=== PATIENT | female | born 1980 | race Caucasian/White ===

== ENCOUNTER 2022-07-15 08:40 | Emergency (ER) | payer OTHER, SELFPAY ==
[2022-07-15 08:56] VITALS: PULSE 102; RESP 16; TEMP 37.2; O2SAT 96; BMI 33.7
[2022-07-15 09:09] VITALS: BP 130/84; PULSE 84; RESP 16; O2SAT 96
--- NOTE | 2022-07-15 09:09 | XR_ITS ---
The [address] [address] Patient Name: KYA DE SANTIAGO MRN: [id number] date: 1980 Sex: F Assigned Patient Location: ED.MAIN Current Patient Location: ER Accession/Order Number: [id number] Exam Date: 07/15/2022 09:50 Report Date: 07/15/2022 10:09 At the request of: ANATOLIY MINAYA Procedure: XR acute abdomen series EXAMINATION: XR acute abdomen series 07/15/2022 7:08 AM PDT HISTORY: abd pain 3 weeks COMPARISONS: None. FINDINGS: Chest findings: Lines/tubes/other: None. Heart and mediastinum: The heart and the mediastinum are within normal limits for technique. Bones: No acute osseous abnormality. Lungs: The lungs are clear. There is no evidence of pneumonia or pulmonary edema. Pleura: There is no significant pleural effusion or pneumothorax. Other: None. Abdominal findings: Nonobstructive bowel gas pattern. No pneumoperitoneum, pneumatosis, or portal venous gas. No abnormal soft tissue calcifications. Stool burden is average. IMPRESSION: No acute abnormality in the chest or abdomen. Electronically authenticated by: VENKAT HOLCOMB Date: 07/15/2022 10:09
--- NOTE | 2022-07-15 09:14 | ED.GENADUL1 ---
HPI - General Adult General Chief complaint: Abdominal Pain Time Seen by Provider: 07/15/22 09:07 Source: patient Source information: slef Mode of arrival: walk-in Limitations: no limitations History of Present Illness HPI narrative: patient is a 41-year-old female who is presenting to the Emergency Room with chief complaint of abdominal pain for 3-4 weeks, the last week she's been having urinary frequency, also she is concerned about possible hemorrhoids and history of rectal cancer with her father. Patient does have a gastrointestinal doctor that she saw once in [facility], she had a colonoscopy 2 years ago that showed no acute findings. Patient was told she did have irritable bowel syndrome from her colonoscopy, patient knows that she needs a follow-up with gastrointestinal. Patient had one episode of black stool this morning, but she took a medication yesterday that would've caused that. No other black stools. No history of acid reflux or ulcers. Patient was researching [employer], and she is concerned about urinary tract infection and polynephritis kidney infection patient has no fever chills, intermittent nausea, intermittent pain. Patient states she has no diarrhea or constipation, she has normal bowel movements and goes frequently with her history of irritable bowel syndrome. 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 Patient still has her gallbladder appendix. Patient had a menses 3 weeks ago, she is not concerned about . No other acute complaints. Related Data Previous Rx's Medication Instructions Recorded dicyclomine 20 mg tablet 20 mg PO BID PRN abdominal pain #7 07/15/22 tabs ondansetron 4 mg disintegrating 4 mg PO Q8H 48 hours #6 tabs 07/15/22 tablet Allergies Allergy/AdvReac Type Severity Reaction Status Date / Time No Known Drug Allergies Allergy Verified 07/15/22 09:27 Review of Systems ROS Narrative All systems are negative except as noted/marked. All systems reviewed and otherwise negative. PFSH PFSH Social History Smoking status: Current every day smoker Exam Narrative Exam Narrative: Nurses note and vital signs reviewed and patient is not hypoxic. General: The patient appears well and in no apparent distress. Patient is resting comfortably on cart. Patient is not toxic, lethargic, or listless Skin: Warm, dry, no pallor noted. There is no rash noted. No petechiae, purpura. Head: Normocephalic, atraumatic Eye: Normal conjunctiva, no drainage, EOMI. PERRL Ears, Nose, Mouth, and Throat: oral mucosa is moist. Nares patent. Mouth without vesicles. Cardiovascular: Regular Rate and Rhythm, no murmur, gallop, rub Respiratory: Patient is in no distress, no accessory muscle use, lungs are clear to auscultation, no wheezing, rales or rhonchi Back: non-tender, mild CVA tenderness bilaterally to percussion. No CT LS midline pain GI: soft, diffuse mild tenderness to palpation, no masses appreciated. No rebound, guarding, or rigidity noted. mild flank pain bilateral, No distention. no peritoneal signs, Rectal exam: Celestina RN was at bedside during the entire exam. Patient has no signs of Tylenol cyst, no rectal abscess, perineal abscess, no signs of external hemorrhoids, no stool noted in the rectal vault. No masses palpated in the rectal vault. Hemoccult was done, dark brown/greenish stool. patient tolerated procedure well no difficulty. Musculoskeletal: Patient has full range of motion of all of the extremities, no motor, sensory, or focal neurological deficits Neurological: A&O x3, normal speech Psychiatric: Cooperative Constitutional Vital Signs - 24 hr 07/15/22 08:56 07/15/22 09:09 07/15/22 11:47 Temperature 99.0 F Pulse Rate [Monitor Left Radial] 102 H 84 83 Respiratory Rate 16 16 16 Blood Pressure [Left Arm] 130/84 H 148/92 H Pulse Oximetry 96 96 197 H Oxygen Delivery Method Room Air Room Air Room Air Course Vital Signs Vital signs: Vital Signs Temperature 99.0 F 07/15/22 08:56 Pulse Rate 102 H 07/15/22 08:56 Respiratory Rate 16 07/15/22 08:56 Pulse Oximetry 96 07/15/22 08:56 Oxygen Delivery Method Room Air 07/15/22 08:56 Temperature 99.0 F 07/15/22 08:56 Pulse Rate 83 07/15/22 11:47 Respiratory Rate 16 07/15/22 11:47 Blood Pressure 148/92 H 07/15/22 11:47 Pulse Oximetry 197 H 07/15/22 11:47 Oxygen Delivery Method Room Air 07/15/22 11:47 Medical Decision Making MDM Narrative Medical decision making narrative: patient's x-ray, lab work, urine showed no acute abnormalities.patient has a history of irritable bowel syndrome. Patient will call [facility]'s gastrointestinal office for follow-up appointment. Patient be prescribed Zofran and Bentyl. Lab Data Lab results reviewed: Yes I reviewed the patient's lab results Labs: Lab Results 07/15/22 07/15/22 Range/Units 09:06 10:17 WBC 9.2 (4.0-11.0) 10^3/uL RBC 4.95 (4.20-5.40) 10^6/uL Hgb 14.7 (12.0-16.0) g/dL Hct 43.7 (36.0-48.0) % MCV 88.3 (81.0-99.0) fL MCH 29.7 (26.7-34.0) pg MCHC 33.6 (29.9-35.2) g/dL RDW 13.1 (11.0-15.0) % Plt Count 388 (150-450) 10^3/uL MPV 9.1 L (9.5-13.5) fL Neut % (Auto) 67.6 (43.0-75.0) % Lymph % (Auto) 22.8 (20.5-60.0) % [place] % (Auto) 5.5 (1.7-12.0) % Eos % (Auto) 3.1 (0.9-7.0) % Baso % (Auto) 0.7 (0.2-2.0) % Neut # (Auto) 6.2 (1.4-6.5) 10^3/uL Lymph # (Auto) 2.1 (1.2-3.8) 10^3/uL [place] # (Auto) 0.5 (0.3-0.8) 10^3/uL Eos # (Auto) 0.3 (0.0-0.7) 10^3/uL Baso # (Auto) 0.1 (0.0-0.1) 10^3/uL Abs Immat Gran (auto) 0.03 (0.00-0.03) 10^3/uL Imm/Tot Granulo (auto) 0.3 (0.0-0.5) % Sodium 137 (136-145) mmol/L Potassium 3.5 (3.5-5.1) mmol/L Chloride 101 (98-107) mmol/L Carbon Dioxide 21.4 (21.0-32.0) mmol/L Anion Gap 18.1 BUN 9.0 (7.0-18.0) mg/dL Creatinine 0.94 (0.55-1.02) mg/dL Est GFR ( Amer) >60 (>=60) Est GFR (Non-Af Amer) >60 (>=60) BUN/Creatinine Ratio 9.6 Glucose 185 H (74-106) mg/dL Calcium 9.4 (8.5-10.1) mg/dL Total Bilirubin 0.8 (0.2-1.0) mg/dL AST 21 (15-37) U/L ALT 39 (14-59) U/L Alkaline Phosphatase 61 (46-116) U/L Total Protein 7.8 (6.4-8.2) g/dL Albumin 4.1 (3.4-5.0) g/dL Globulin 3.7 g/dL Albumin/Globulin Ratio 1.1 Lipase 70.0 L (73.0-393.0) U/L Urine Color Lt. yellow (YELLOW) Urine Clarity Clear (CLEAR) Urine pH 6.0 (5.0-9.0) Ur Specific [place] 1.025 (1.005-1.025) Urine Protein Negative (NEG/TRACE) mg/dL Urine Glucose (UA) Negative (NEGATIVE) mg/dL Urine Ketones Negative (NEGATIVE) mg/dL Urine Occult Blood Trace-i (NEGATIVE) Urine Nitrite Negative (NEGATIVE) Urine Bilirubin Negative (NEGATIVE) Urine Urobilinogen 0.2 (0.2-1.0) EU/dL Ur Leukocyte Esterase Negative (NEGATIVE) Urine RBC 2-5 A (0-2) #/HPF Urine WBC None seen (NONE SEEN) #/HPF Ur Squamous Epith Cells Many A (NONE/RARE) #/LPF Urine Crystals None seen (None Seen) #/HPF Urine Bacteria None seen (NONE SEEN) #/HPF Urine Casts None seen (NONE SEEN) #/LPF Urine Mucus Trace A (NONE SEEN) Ur Culture Indicated? No Urine HCG, Qual Negative (NEGATIVE) Stool Occult Blood Negative Imaging Data Abdominal x-ray: Attestation: I have reviewed the pertinent imaging results. Discharge Plan Discharge Chief Complaint: Abdominal Pain Clinical Impression: Abdominal pain, chronic, generalized Patient Disposition: Home, Self-Care Time of Disposition Decision: 11:44 Condition: Fair Prescriptions / Home Meds: New ondansetron 4 mg tablet,disintegrating 4 mg PO Q8H 2 Days Qty: 6 0RF dicyclomine 20 mg tablet 20 mg PO BID PRN (Reason: abdominal pain) Qty: 7 0RF Instructions: Abdominal Pain (ED) Additional Instructions: Call your gastrointestinal physician in [facility] for a new appointment for follow-up for ongoing chronic abdominal pain Stand Alone Forms: Portal Instructions Referrals: Physician,Non-Staff, MD [Primary Care Provider] - 1 week Discharge Date/Time: 07/15/22 11:50
[2022-07-15] MEDS: 0.9 % SODIUM CHLORIDE 1,000 ML 999 ML IV (09:34)
[2022-07-15] MEDS: DICYCLOMINE HCL 20 MG/2 ML VIAL IM (09:34)
[2022-07-15 09:36] LABS: HCG Qualitative Urine* NEGATIVE (NEGATIVE)
[2022-07-15] MEDS: KETOROLAC TROMETHAMINE 30 MG/ML VIAL 15 MG IVP (09:38)
[2022-07-15 09:39] LABS: Basophils Absolute Auto 0.1 10^3/uL (0.0-0.1); Basophils Percent Auto 0.7 % (0.2-2.0); Eosinophils Absolute Auto 0.3 10^3/uL (0.0-0.7); Eosinophils Percent Auto 3.1 % (0.9-7.0); Hematocrit 43.7 % (36.0-48.0); Hemoglobin 14.7 g/dL (12.0-16.0); Immature Granulocytes Abs Auto 0.03 10^3/uL (0.00-0.03); Immature Granulocytes Pct Auto 0.3 % (0.0-0.5); Lymphocytes Absolute Auto 2.1 10^3/uL (1.2-3.8); Lymphocytes Percent Auto 22.8 % (20.5-60.0); Mean Corpuscular HGB Conc 33.6 g/dL (29.9-35.2); Mean Corpuscular Hemoglobin 29.7 pg (26.7-34.0); Mean Corpuscular Volume 88.3 fL (81.0-99.0); Mean Platelet Volume 9.1 fL (9.5-13.5); Monocytes Absolute Auto 0.5 10^3/uL (0.3-0.8); Monocytes Percent Auto 5.5 % (1.7-12.0); Neutrophils Absolute Auto 6.2 10^3/uL (1.4-6.5); Neutrophils Percent Auto 67.6 % (43.0-75.0); Platelet Count 388 10^3/uL (150-450); Red Blood Count 4.95 10^6/uL (4.20-5.40); Red Cell Distribution Width 13.1 % (11.0-15.0); White Blood Count 9.2 10^3/uL (4.0-11.0)
[2022-07-15 09:51] LABS: Alanine Aminotransferase 39 U/L (14-59); Albumin Globulin Ratio 1.1; Albumin Level 4.1 g/dL (3.4-5.0); Alkaline Phosphatase 61 U/L (46-116); Anion Gap 18.1; Aspartate Amino Transferase 21 U/L (15-37); BUN Creatinine Ratio 9.6; Bilirubin Total 0.8 mg/dL (0.2-1.0); Calcium 9.4 mg/dL (8.5-10.1); Carbon Dioxide 21.4 mmol/L (21.0-32.0); Chloride 101 mmol/L (98-107); Estimated GFR (African America >60 (>=60); Estimated GFR (Non-African Ame >60 (>=60); Globulin 3.7 g/dL; Glucose 185 mg/dL (74-106); Potassium 3.5 mmol/L (3.5-5.1); Sodium 137 mmol/L (136-145); Total Protein 7.8 g/dL (6.4-8.2)
[2022-07-15 09:54] LABS: Occult Blood Negative
[2022-07-15 10:11] LABS: Bilirubin Urine NEGATIVE (NEGATIVE); Blood Urine TRACE-I (NEGATIVE); Clarity Urine CLEAR (CLEAR); Color Urine LT. YELLOW (YELLOW); Glucose Urine UA NEGATIVE (NEGATIVE); Ketones Urine NEGATIVE (NEGATIVE); Leukocyte Esterase Urine NEGATIVE (NEGATIVE); Nitrite Urine NEGATIVE (NEGATIVE); Protein Urine NEGATIVE (NEG/TRACE); Specific Gravity Urine 1.025 (1.005-1.025); Urobilinogen Urine 0.2 EU/dL (0.2-1.0)
[2022-07-15 10:17] LABS: Urine Microscopic Indicated YES
[2022-07-15 10:23] LABS: Bacteria Urine NONE SEEN #/HPF (NONE SEEN); Mucus Urine TRACE (NONE SEEN); WBC Urine NONE SEEN #/HPF (NONE SEEN)
[2022-07-15 10:24] LABS: Cast Seen? NONE SEEN #/LPF (NONE SEEN); Crystals Seen? None Seen #/HPF (None Seen); Squamous Epithelial Cell Urine MANY #/LPF (NONE/RARE); Urine Culture Indicated NO
[2022-07-15 11:47] VITALS: BP 148/92; PULSE 83; RESP 16; O2SAT 197
== END 2022-07-15 11:50 | disposition home or self-care (01) ==
PROVIDERS: Emergency Provider Emergency Medicine
DX: R10.9 Unspecified abdominal pain (principal); G89.29 Other chronic pain; F17.210 Nicotine dependence, cigarettes, uncomplicated
CPT/HCPCS: 36415; 74022; 80053; 81003; 81015; 83690; 84703; 85025; 96372; 96374; 99284; G0328; J0500